=== PATIENT | female | born 1995 | race Two or more races ===

== ENCOUNTER 2018-06-28 07:56 | Emergency (ER) | payer MEDICAID ==
[~2018-06-28] VITALS: Ht 160 cm; Wt 93.9 kg
[2018-06-28 08:02] VITALS: Ht 160 cm; Wt 93.9 kg
[2018-06-28 08:33] LABS: BASOPHIL % 0.3 % (0-2); PLATELET COUNT 218 x10^3mcL (130-400); RED CELL DISTRIBUTION WIDTH 13.9 % (11.5-14.5)
[2018-06-28 08:49] LABS: CALCIUM 8.6 mg/dL (8.5-10.1); CARBON DIOXIDE 25.4 mmol/L (21-32); CHLORIDE SERUM 102 mmol/L (98-107); CREATININE SERUM 0.5 mg/dL (0.6-1.0); GFR1 > 60 mL/min; GLUCOSE SERUM 110 mg/dL (74-106); POTASSIUM SERUM 3.6 mmol/L (3.5-5.1); SODIUM SERUM 137 mmol/L (136-145)
[2018-06-28 08:54] LABS: ALBUMIN 3.6 g/dL (3.4-5.0); ALKALINE PHOSPHATASE 69 U/L (46-116); ALT/SGPT 21 U/L (14-59); AST/SGOT 13 U/L (15-37); BILIRUBIN TOTAL 0.3 mg/dL (0.20-1.00); LIPASE 70 IU/L (73-393); TOTAL PROTEIN, SERUM 7.8 g/dL (6.4-8.2)
[2018-06-28 08:59] LABS: UA SPECIFIC GRAVITY 1.015 (1.005-1.035); microscopic required? YES; urine erythrocyte 2+ (NEGATIVE)
[2018-06-28 10:41] VITALS: BP 104/64
== END 2018-06-28 10:41 | disposition home or self-care (01) ==
LOC: ED 07:56
PROVIDERS: Emergency Medicine
DX: O23.41 Unspecified infection of urinary tract in pregnancy, first trimester (principal); Z3A.01 Less than 8 weeks gestation of pregnancy
CPT/HCPCS: J2405; J7030

== ENCOUNTER 2019-03-11 13:15 | Emergency (ER) | payer MEDICAID ==
[~2019-03-11] VITALS: Ht 160 cm; Wt 89.8 kg
[2019-03-11 13:18] VITALS: Ht 160 cm; Wt 89.8 kg
[2019-03-11 14:20] VITALS: BP 112/81
== END 2019-03-11 14:20 | disposition home or self-care (01) ==
LOC: ED 13:15
DX: G51.0 Bell's palsy (principal)